=== PATIENT | female | born 1985 | race Caucasian/White ===

== ENCOUNTER 2017-05-13 09:38 | Day surgery (SDC) | payer OTHER ==
[2017-05-06 15:07] VITALS: BP 102/64
[~2017-05-13] VITALS: Ht 160 cm; Wt 57.0 kg
[~2017-05-13 09:38] MED LIST: IBUP-1223 PO; MUSCLE RELAXER PO; PERCOCET PO
[2017-05-13] MEDS ORDERED: LACTATED RINGERS 1,000 ML IV SCH (10:01)
[2017-05-13 10:09] LABS: HCG UR LOT HCG7030192
[2017-05-13 10:20] LABS: HCG UR OBC PASS
[2017-05-13] MEDS ORDERED: OXYcodone 5 MG/5 ML ORAL.SOL UDC PO PRN (11:30)
[2017-05-13] MEDS ORDERED: hydrALAzine 20 MG/ML, 1ML IV PRN (11:30)
[2017-05-13] MEDS ORDERED: LABETALOL 5MG/ML, 20ML IV PRN (11:30)
[2017-05-13] MEDS ORDERED: ONDANSETRON 2MG/ML, 2ML IVPush PRN ×2 (11:30→13:30)
[2017-05-13] MEDS ORDERED: FENTANYL PF 100 MCG/2ML IV PRN (11:30)
[2017-05-13] MEDS ORDERED: PROMETHAZINE 25 MG/ML, 1ML IV PRN (11:30)
[2017-05-13] MEDS ORDERED: HYDROmorphone 1 MG/ML, 1ML IV PRN (11:30)
[2017-05-13] MEDS ORDERED: MEPERIDINE/PF 25MG/0.5ML IVPush PRN (11:30)
[2017-05-13] MEDS ORDERED: ACETAMINOPHEN 325 MG TABLET PO PRN (11:30)
[2017-05-13] MEDS ORDERED: MIDAZOLAM 1 MG/ML, 2ML ONE (11:31)
[2017-05-13] MEDS ORDERED: FENTANYL PF 100 MCG/2ML ONE ×3 (11:31→13:34)
[2017-05-13] MEDS ORDERED: BUPIVACAINE/PF 0.25% ONE (12:09)
[2017-05-13] MEDS ORDERED: EPINEPHRINE 1 MG/ML, 1ML ONE (12:10)
[2017-05-13] MEDS ORDERED: CEFAZOLIN 1,000 MG ONE (12:29)
[2017-05-13] MEDS ORDERED: KETOROLAC 30 MG/1 ML ONE (12:29)
[2017-05-13] MEDS ORDERED: PROPOFOL 10 MG/ML, 20ML ONE (12:29)
[2017-05-13] MEDS ORDERED: ONDANSETRON 2MG/ML, 2ML ONE (12:29)
[2017-05-13] MEDS ORDERED: ROCURONIUM 10 MG/ML ONE (12:29)
[2017-05-13] MEDS ORDERED: DEXAMETHASONE 4 MG/ML, 1ML ONE (12:37)
[2017-05-13] MEDS ORDERED: morphine SULFATE 10 MG/ML, 1ML IVPush PRN (13:30)
[2017-05-13] MEDS ORDERED: OXYcodone/APAP 5/325MG TABLET PO PRN (13:30)
[2017-05-13] MEDS ORDERED: DIPHENHYDRAMINE 50 MG/ML, 1ML IVPush PRN (13:30)
[2017-05-13] MEDS ORDERED: KETOROLAC 30 MG/1 ML IVPush PRN (13:30)
[2017-05-13] MEDS ORDERED: ACETAMINOPHEN 650 MG/20.3 ML UDC ONE (13:34)
[2017-05-13] MEDS ORDERED: HYDROmorphone 1 MG/ML, 1ML ONE (13:34)
[2017-05-13] MEDS ORDERED: OXYcodone 5 MG/5 ML ORAL.SOL UDC ONE (13:34)
== END 2017-05-13 14:50 ==
LOC: OUT 09:38
PROVIDERS: ATTEND Surgery
DX: K42.0 Umbilical hernia with obstruction, without gangrene (principal); Z88.6 Allergy status to analgesic agent; Z88.5 Allergy status to narcotic agent; Z88.8 Allergy status to other drugs, medicaments and biological substances; Z98.51 Tubal ligation status; Z98.890 Other specified postprocedural states
CPT/HCPCS: 49587; 81025; J0171; J0690; J1100; J1885; J2250; J2405; J2704; J3010; J3490; J7120

== ENCOUNTER → 2020-03-14 | Outpatient (CLI) | payer OTHER ==
[~2020-03-14] MED LIST changes: +OMNIPAQUE 350 MG/ML, 100ML BOTTLE ONE
== END | disposition home or self-care (01) ==
LOC: CFH 12:19
PROVIDERS: ATTEND Family Medicine
DX: R51 Headache (principal); J34.1 Cyst and mucocele of nose and nasal sinus; R22.0 Localized swelling, mass and lump, head
CPT/HCPCS: 70460; Q9967